=== PATIENT | female | born 1950 | race Caucasian/White ===

== ENCOUNTER → 2017-07-08 | Outpatient (CLI) | payer MEDICARE ==
--- NOTE | 2017-07-08 16:00 | REPMRS ---
Patient History The patient states she had a clinical breast exam in 06/2017. Patient is postmenopausal. Family history of colorectal cancer in maternal uncle at age 50 or over. Digital Woman Screen Mammo: July 08, 2017 - Exam #: [id number] Bilateral CC and MLO view(s) were taken. Technologist: Angelica Su, Technologist Prior study comparison: February 19, 2016, digital woman screen mammo performed at [facility] to [facility]. September 27, 2014, digital woman screen mammo performed at [facility]. August 04, 2013, digital woman screen mammo performed at [facility]. FINDINGS: There are scattered fibroglandular densities. There has been no change in the appearance of the mammogram from the prior studies. There is a mild amount of scattered fibroglandular density which is fairly symmetric. There is no interval development of dominant mass, architectural distortion, or clustered microcalcification suggestive of malignancy. ASSESSMENT: BI-RADS/ACR category 1 mammogram. Negative. Recommendation Routine screening mammogram in 1 year (for women over age 40). This mammogram was interpreted with the aid of an FDA-approved computer-aided dectection system. Electronically Signed By: Rodolfo Donovan MD 07/08/17 [id number]
== END ==
LOC: M WHC 13:41
PROVIDERS: ATTEND Nurse Practitioner Family
DX: Z12.31 Encounter for screening mammogram for malignant neoplasm of breast (principal); Z78.0 Asymptomatic menopausal state
CPT/HCPCS: G0202; G0463

== ENCOUNTER → 2019-06-29 | Outpatient (CLI) | payer MEDICARE ==
--- NOTE | 2019-06-29 17:00 | REP ---
REASON FOR EXAMINATION: Pain. There are no priors for comparison. There is mild AC joint DJD with asymmetric joint space narrowing and slight osteophytosis. The glenohumeral relationship is within normal limits. There is no fracture, dislocation, or subluxation. IMPRESSION: Chronic changes as described above. Electronically Signed by Esdras Wood DO 06/29/2019 05:06 P
== END ==
LOC: M LAB 14:46
PROVIDERS: ATTEND Family Medicine
DX: M25.712 Osteophyte, left shoulder (principal)

== ENCOUNTER → 2020-03-29 | Outpatient (CLI) | payer MEDICARE | LOC: M LABSMTC 12:23 | PROVIDERS: ATTEND Ophthalmology Retina Specialist | DX: Z01.818 Encounter for other preprocedural examination (principal); Z11.59 Encounter for screening for other viral diseases | CPT/HCPCS: C9803; U0003 ==

== ENCOUNTER → 2020-04-26 | Outpatient (CLI) | payer MEDICARE | LOC: M LABSMTC 11:00 | PROVIDERS: ATTEND Ophthalmology Retina Specialist | DX: Z20.828 Contact with and (suspected) exposure to other viral communicable diseases (principal) | CPT/HCPCS: C9803; U0002 ==

== ENCOUNTER → 2020-08-29 | Outpatient (CLI) | payer MEDICARE ==
--- NOTE | 2020-08-29 13:33 | REP ---
INDICATION: CERVICALGIA, LBP COMPARISON: None. TECHNIQUE: AP, lateral, flexion/extension, bilateral oblique, and open-mouth views. FINDINGS: Grade 1 anterolisthesis at the L4-5 level of approximately 4.3 mm is appreciated along with straightening of normal lordosis and moderate multilevel osteophytosis, endplate sclerosis and disc space narrowing primarily involving C5-6 and C6-7. Oblique views demonstrate facet arthropathy and foraminal narrowing primarily involving C5-6 and C6-7. Spinous processes are intact. Open mouth view demonstrates normal C1-C2 articulation and odontoid process. IMPRESSION: Grade 1 anterolisthesis at the L4-5 level of 4.3 mm. Moderate/advanced multilevel degenerative spondylosis. <Electronically signed by Vladimir Diaz > 08/29/20 [id number]
--- NOTE | 2020-08-29 13:35 | REP ---
INDICATION: CERVICALGIA, LBP COMPARISON: None. TECHNIQUE: AP, lateral, bilateral oblique, and coned-down views of the lumbar spine. FINDINGS: Alignment and lordosis maintained. Vertebral bodies are intact. Age-related osteopenia and moderate multilevel degenerative changes include endplate sclerosis, disc space narrowing, marginal spurring and facet arthropathy. Disc space narrowing is most notable at L2-3 and L5-S1. No acute fracture/compression injury or subluxation. No spondylolysis or spondylolisthesis. IMPRESSION: Moderate multilevel degenerative spondylosis <Electronically signed by Vladimir Diaz > 08/29/20 [id number]
== END ==
LOC: M RAD 12:39
PROVIDERS: ATTEND Family Medicine
DX: M54.2 Cervicalgia (principal); M54.5 Low back pain

== ENCOUNTER → 2021-07-15 | Outpatient (CLI) | payer MEDICARE ==
--- NOTE | 2021-07-15 12:53 | REP ---
INDICATION: LOW BACK PAIN COMPARISON: 10/27/2011. TECHNIQUE: Four views right ankle. FINDINGS: There is no evidence of acute fracture, dislocation, or intrinsic bone disease.The ankle mortise is anatomic. There is mild posterior and inferior calcaneal spurring. IMPRESSION: No fracture or dislocation. Mild posterior and inferior calcaneal spurring. <Electronically signed by Nabeel Escobar > 07/15/21 [id number]
== END ==
LOC: M RAD 12:01
PROVIDERS: ATTEND Family Medicine
DX: M54.59 Other low back pain (principal)

== ENCOUNTER → 2021-09-04 | Outpatient (CLI) | payer MEDICARE ==
[2021-09-04 15:14] LABS: BASO # 0.1 10^3/uL (0.0-0.2); BASO % 0.7 % (0.0-1.0); EOS # 0.1 10^3/uL (0.0-0.5); HEMATOCRIT 40.3 % (36.0-47.0); HEMOGLOBIN 13.2 g/dl (12.0-15.5); LYMPH # 2.4 10^3/uL (1.5-5.0); LYMPH % 21.8 % (24.0-44.0); MEAN CORPUSCULAR HEMOGLOBIN 30.9 pg (27.0-33.0); MEAN CORPUSCULAR HGB CONC 32.8 g/dl (32.0-36.5); MEAN CORPUSCULAR VOLUME 94.4 fl (80.0-96.0); MONO # 1.1 10^3/uL (0.0-0.8); MONO % 9.6 % (2.0-8.0); NEUTROPHILS # 7.3 10^3/uL (1.5-8.5); NEUTROPHILS % 66.7 % (36.0-66.0); PLATELET COUNT, AUTOMATED 292 10^3/uL (150-450); RED BLOOD COUNT 4.27 10^6/uL (4.00-5.40); WHITE BLOOD COUNT 10.9 10^3/uL (4.0-10.0)
[2021-09-04 15:50] LABS: ALT/SGPT 35 U/L (12-78); BILIRUBIN,TOTAL 0.5 MG/DL (0.2-1.0); BLOOD UREA NITROGEN 16 MG/DL (7-18); CALCIUM LEVEL 9.6 MG/DL (8.8-10.2); CARBON DIOXIDE LEVEL 27 MEQ/L (21-32); CHLORIDE LEVEL 104 MEQ/L (98-107); CREATININE FOR GFR 0.78 MG/DL (0.55-1.30); FOLATE > 24.0 NG/ML; FREE THYROXINE INDEX 3.3 % (1.3-4.8); GLOMERULAR FILTRATION RATE > 60.0 (>39); GLUCOSE, FASTING 85 MG/DL (70-100); POTASSIUM SERUM 4.1 MEQ/L (3.5-5.1); SODIUM LEVEL 139 MEQ/L (136-145); T UPTAKE 35 % (30-39); THYROXINE (T4) 9.5 UG/DL (4.5-12.0); TOTAL PROTEIN 7.4 GM/DL (6.4-8.2); VITAMIN B12 LEVEL 510 PG/ML
[2021-09-04 15:58] LABS: ERYTHROCYTE SEDIMENTATION RATE 28 mm/hr (0-30)
== END ==
LOC: M PLALAB 12:06
PROVIDERS: ATTEND Psychiatry & Neurology Neurology
DX: F03.90 Unspecified dementia, unspecified severity, without behavioral disturbance, psychotic disturbance, mood disturbance, and anxiety (principal)

== ENCOUNTER → 2022-03-06 | Outpatient (CLI) | payer MEDICARE | LOC: M WHC 12:29 | PROVIDERS: ATTEND Family Medicine | DX: Z12.31 Encounter for screening mammogram for malignant neoplasm of breast (principal) ==

== ENCOUNTER → 2024-01-19 | Outpatient (CLI) | payer MEDICARE ==
[2024-01-19 10:44] LABS: BASO # 0.2 10^3/uL (0.0-0.2); BASO % 1.3 % (0.0-1.0); EOS # 0.3 10^3/uL (0.0-0.5); EOS % 2.2 % (0.0-3.0); HEMATOCRIT 39.8 % (36.0-47.0); HEMOGLOBIN 12.9 g/dl (12.0-15.5); LYMPH # 2.3 10^3/uL (1.5-5.0); LYMPH % 19.4 % (24.0-44.0); MEAN CORPUSCULAR HEMOGLOBIN 30.9 pg (27.0-33.0); MEAN CORPUSCULAR HGB CONC 32.4 g/dl (32.0-36.5); MEAN CORPUSCULAR VOLUME 95.2 fl (80.0-96.0); MONO # 1.3 10^3/uL (0.0-0.8); MONO % 10.6 % (2.0-8.0); NEUTROPHILS # 7.9 10^3/uL (1.5-8.5); PLATELET COUNT, AUTOMATED 309 10^3/uL (150-450); RED BLOOD COUNT 4.18 10^6/uL (4.00-5.40); WHITE BLOOD COUNT 11.9 10^3/uL (4.0-10.0)
[2024-01-19 12:03] LABS: ALBUMIN 3.8 G/DL (3.2-5.2); ALKALINE PHOSPHATASE 164 U/L (46-116); ALT/SGPT 21 U/L (7.0-40); AST/SGOT 23 U/L (<34); BILIRUBIN,TOTAL 0.5 MG/DL (0.3-1.2); BLOOD UREA NITROGEN 17 MG/DL (9-23); CALCIUM LEVEL 9.7 MG/DL (8.3-10.6); CARBON DIOXIDE LEVEL 29 MMOL/L (20-31); CHLORIDE LEVEL 103 MMOL/L (98-107); CHOLESTEROL LEVEL 159 MG/DL (<200); CHOLESTEROL RISK RATIO 2.25 (<5); CREATININE FOR GFR 0.88 MG/DL (0.55-1.30); GLOMERULAR FILTRATION RATE > 60.0 (>39); GLUCOSE, FASTING 92 MG/DL (74-106); HDL CHOLESTEROL 70.5 MG/DL (>40); LDL CHOLESTEROL 71.7 MG/DL (<100); NON-HDL-C 88.5 MG/DL; POTASSIUM SERUM 4.2 MMOL/L (3.5-5.1); SODIUM LEVEL 140 MMOL/L (136-145); TOTAL PROTEIN 6.9 G/DL (5.7-8.2); TRIGLYCERIDES LEVEL 84 MG/DL (<150)
== END ==
LOC: M LAB 09:34
PROVIDERS: ATTEND Family Medicine
DX: E78.5 Hyperlipidemia, unspecified (principal)

== ENCOUNTER → 2024-02-04 | Outpatient (CLI) | payer MEDICARE | LOC: M WHC 13:58 | PROVIDERS: ATTEND Family Medicine | DX: Z12.31 Encounter for screening mammogram for malignant neoplasm of breast (principal); M81.0 Age-related osteoporosis without current pathological fracture ==

== ENCOUNTER → 2025-01-27 | Outpatient (CLI) | payer MEDICARE ==
[2025-01-27 11:42] LABS: BASO # 0.1 10^3/uL (0.0-0.2); BASO % 1.2 % (0.0-1.0); EOS # 0.2 10^3/uL (0.0-0.5); EOS % 2.4 % (0.0-3.0); HEMATOCRIT 38.3 % (36.0-47.0); HEMOGLOBIN 12.7 g/dl (12.0-15.5); LYMPH # 2.4 10^3/uL (1.5-5.0); LYMPH % 25.7 % (24.0-44.0); MEAN CORPUSCULAR HEMOGLOBIN 31.1 pg (27.0-33.0); MEAN CORPUSCULAR HGB CONC 33.2 g/dl (32.0-36.5); MEAN CORPUSCULAR VOLUME 93.6 fl (80.0-96.0); MONO # 1.1 10^3/uL (0.0-0.8); MONO % 11.6 % (2.0-8.0); NEUTROPHILS # 5.4 10^3/uL (1.5-8.5); NEUTROPHILS % 58.9 % (36.0-66.0); PLATELET COUNT, AUTOMATED 271 10^3/uL (150-450); RED BLOOD COUNT 4.09 10^6/uL (4.00-5.40); WHITE BLOOD COUNT 9.2 10^3/uL (4.0-10.0)
[2025-01-27 12:05] LABS: ALBUMIN 3.8 G/DL (3.2-5.2); BILIRUBIN,TOTAL 0.7 MG/DL (0.3-1.2); CALCIUM LEVEL 9.2 MG/DL (8.3-10.6); CHOLESTEROL RISK RATIO 1.87 (<5); CREATININE FOR GFR 0.9 MG/DL (0.55-1.30); GLOMERULAR FILTRATION RATE 66.3 (>39); HDL CHOLESTEROL 74.3 MG/DL (>40); LDL CHOLESTEROL 51.7 MG/DL (<100); NON-HDL-C 64.7 MG/DL; POTASSIUM SERUM 4.2 MMOL/L (3.5-5.1); TOTAL PROTEIN 6.8 G/DL (5.7-8.2)
== END ==
LOC: M LAB 10:43
PROVIDERS: ATTEND Family Medicine
DX: Z00.00 Encounter for general adult medical examination without abnormal findings (principal); E78.00 Pure hypercholesterolemia, unspecified

== ENCOUNTER → 2025-01-31 | Outpatient (CLI) | payer MEDICARE | LOC: M PLAIMG 12:37 | PROVIDERS: ATTEND Family Medicine | DX: M54.50 Low back pain, unspecified (principal) ==

== ENCOUNTER → 2025-02-01 | Outpatient (CLI) | payer MEDICARE | LOC: M WHC 14:20 | PROVIDERS: ATTEND Family Medicine | DX: Z12.31 Encounter for screening mammogram for malignant neoplasm of breast (principal) ==

== ENCOUNTER → 2025-04-03 | Outpatient (CLI) | payer MEDICARE | LOC: M LAB 13:26 | PROVIDERS: ATTEND Family Medicine | DX: R53.83 Other fatigue (principal) ==